=== PATIENT | female | born 1940 | race Caucasian/White ===

== ENCOUNTER 2019-07-29 13:02 | Outpatient (CLI) | payer MEDICARE ==
[2019-07-29 20:18] LABS: HEMOGLOBIN A1C 0.57 g/dL; HEMOGLOBIN A1C % 5.9 % (4.6-6.2)
== END 2019-07-29 13:03 | disposition home or self-care (01) ==
LOC: LAB.S 13:02
PROVIDERS: ATTEND Registered Nurse
DX: L83 Acanthosis nigricans (principal); M35.3 Polymyalgia rheumatica
CPT/HCPCS: 36415; 83036; 85651; 86140

== ENCOUNTER 2019-07-30 11:45 | Outpatient (CLI) | payer MEDICARE | END 2019-07-30 11:46 | disposition home or self-care (01) | LOC: LAB.S 11:45 | PROVIDERS: ATTEND Registered Nurse | DX: M35.3 Polymyalgia rheumatica (principal) | CPT/HCPCS: 86140 ==

== ENCOUNTER 2020-12-25 11:35 | Emergency (ER) | payer MEDICARE ==
--- NOTE | 2020-12-25 12:39 | ED Physician Documentation ---
PD HPI BACK PAIN - Stated complaint Stated Complaint: BACK PX - Chief complaint Chief Complaint: Back Pain - History obtained from History obtained from: Family - History of Present Illness Timing - onset: How many days ago (5) Timing - duration: Days (5) Timing - details: Gradual onset, Still present Location: Upper, Mid Quality: Pain, Spasm, Sharp Associated symptoms: No: Fever, Weakness, Numbness, Incontinent of urine, Unable to urinate, Hematuria, Incontinent of stool Improves with: Rest, Position Worsened by: Movement Similar symptoms before: Diagnosis (PMR) Recently seen: Clinic - Additional information Additional information: 80-year-old female with history of asked dementia has developed back pain in her mid back about 5 days ago and she has had a progression of her symptoms. She has gone in to see her primary care doctor and has been placed onto a lidocaine patch. Had some improvement with that but last night had a really bad night and they were directed to come to the emergency department for further evaluation. The patient has not otherwise been ill. The patient herself is not able to participate in history. She laughs a lot and is quite pleasant. Review of Systems Constitutional: denies: Fever Eyes: denies: Decreased vision Ears: denies: Ear pain Nose: denies: Congestion Throat: denies: Sore throat Cardiac: denies: Chest pain / pressure Respiratory: denies: Dyspnea, Cough GI: denies: Vomiting : reports: Frequency. denies: Dysuria Skin: denies: Rash Musculoskeletal: reports: Back pain. denies: Neck pain, Extremity pain PD PAST MEDICAL HISTORY - Present Medications Home Medications: Ambulatory Orders Medication Instructions Recorded Confirmed Meloxicam [Mobic] 7.5 mg PO BID PRN #20 tablet 12/25/20 - Allergies Allergies/Adverse Reactions: Allergies Allergy/AdvReac Type Severity Reaction Status Date / Time No Known Drug Allergies Allergy Verified 12/25/20 11:48 PD ED PE NORMAL - Vitals Vital signs reviewed: Yes - General General: No acute distress, Well developed/nourished, Other (alert and interactive but not able to get straight answer. ) - HEENT HEENT: Atraumatic, PERRL, EOMI - Neck Neck: Supple, no meningeal sign, No bony TTP - Cardiac Cardiac: RRR, No murmur - Respiratory Respiratory: No respiratory distress, Clear bilaterally - Abdomen Abdomen: Soft, Non tender - Back Back: No CVA TTP, No spinal TTP - Derm Derm: Normal color, Warm and dry, No rash - Extremities Extremities: No deformity, No edema - Neuro Neuro: control analyst 2-12 intact, No motor deficit, No sensory deficit, Normal speech Eye Opening: Spontaneous Motor: Obeys Commands Verbal: Confused GCS Score: 14 - Psych Psych: Normal mood, Normal affect Results - Vitals Vitals: Vital Signs - 24 hr 12/25/20 12/25/20 11:39 14:32 Temperature 36.2 C L Heart Rate 94 82 Respiratory 16 16 Rate Blood Pressure 152/83 H 171/88 H O2 Saturation 96 97 Oxygen O2 Source Room air - Labs Labs: Laboratory Tests 12/25/20 13:40 Urine Color DARK YELLOW Urine Clarity CLEAR Urine pH 5.0 Ur Specific [place] >=1.030 H Urine Protein NEGATIVE Urine Glucose (UA) NEGATIVE Urine Ketones NEGATIVE Urine Occult Blood NEGATIVE Urine Nitrite NEGATIVE Urine Bilirubin NEGATIVE Urine Urobilinogen 0.2 (NORMAL) Ur Leukocyte Esterase NEGATIVE Ur Microscopic Review NOT INDICATED Urine Culture Comments NOT INDICATED - Rads (name of study) thoracic Radiology: Prelim report reviewed (Impression: No acute thoracic spine compression fracture or spondylolisthesis. Very mild leftward curvature of the lower thoracic spine as above. Degenerative disc disease throughout the thoracic spine.), EMP read indepedently, See rad report Lumbar spine Radiology: Prelim report reviewed (Impression: No acute lumbar spine fracture or dislocation. Degenerative endplate changes throughout lumbar spine more prominent at L5-S1 and L4-5 levels. Minimal retrolisthesis at L2-3 and L3-4.), EMP read indepedently, See rad report PD MEDICAL DECISION MAKING - ED course Complexity details: reviewed results, re-evaluated patient, considered differential, d/w patient, d/w family ED course: 80-year-old female with some back pain in her mid back does not have evidence of compression fracture on examination. She does have some pain and winces periodically when she is ministered Toradol and dexamethasone. She has improvement. She is diagnosed with dehydration as well with a concentrated urine. No evidence of infection. Departure - Departure Disposition: 01 Home, Self Care Clinical Impression: Dehydration Thoracic myofascial strain Qualifiers: Encounter type: initial encounter Qualified Code(s): S29.019A - Strain of muscle and tendon of unspecified wall of thorax, initial encounter Condition: Stable Instructions: ED Dehydration, ED Sprain Thoracic Spine Follow-Up: Verónica Chew ARNP [Primary Care Provider] - Prescriptions: Meloxicam [Mobic] 7.5 mg PO BID PRN #20 tablet PRN Reason: Pain Discharge Date/Time: 12/25/20 14:48
--- NOTE | 2020-12-25 13:36 | XRAY Report ---
PROCEDURE: Thoracic Spine 3 View INDICATIONS: thoracolumbar pain with movement. TECHNIQUE: 2 views of the thoracic spine were acquired. COMPARISON: None. FINDINGS: Bones: No fractures or dislocations. Very mild leftward curvature of lower thoracic spine centered at T11 level is seen. Degenerative endplate changes are noted throughout thoracic spine. No suspiciou s bony lesions. 12 pairs of ribs are noted, and appear intact where visualized. Soft tissues: No paravertebral stripe thickening. IMPRESSION: No acute thoracic spine compression fracture or spondylolisthesis. Very mild leftward curvature of lo wer thoracic spine as above. Degenerative disc disease throughout thoracic spine. Reviewed by: Elmo Bay MD on 12/25/2020 1:35 PM PST Approved by: Elmo Bay MD on 12/25/2020 1:35 PM PST Station ID: [id number]
--- NOTE | 2020-12-25 13:37 | XRAY Report ---
PROCEDURE: Lumbar Spine 2 View INDICATIONS: thoraco/lumbar pain with movement. TECHNIQUE: 2 views of the lumbar spine were acquired. COMPARISON: None. FINDINGS: Bones: 5 [id number] vertebrae are present. There is minimal retrolisthesis of L2 on L3 at L3 o n L4. Degenerative endplate changes throughout lumbar spine is seen more prominent at L4-5 and L5-S1 levels with bilateral facet arthrosis.. No vertebral body compression fractures. No suspicious bony lesions. Soft tissues: Overlying bowel gas pattern is normal. No suspicious soft tissue calcifications. IMPRESSION: No acute lumbar spine fracture or dislocation. Degenerative endplate changes throughout lumbar spine more prominent at L4-5 and L5-S1 levels. Minimal retrolisthesis at L2-3 and L3-4 levels. Reviewed by: Elmo Bay MD on 12/25/2020 1:36 PM PST Approved by: Elmo Bay MD on 12/25/2020 1:36 PM PST Station ID: [id number]
[2020-12-25 13:55] LABS: BILIRUBIN,URINE NEGATIVE (NEGATIVE); GLUCOSE, URINE (UA) NEGATIVE (NEGATIVE); KETONES,URINE (UA) NEGATIVE (NEGATIVE); LEUKOCYTE ESTERASE, URINE NEGATIVE (NEGATIVE); NITRITE,URINE NEGATIVE (NEGATIVE); OCCULT BLOOD,URINE NEGATIVE (NEGATIVE); PROTEIN,URINE NEGATIVE (NEGATIVE); UROBILINOGEN,URINE 0.2 (NORMAL) E.U./dL (NORMAL)
[2020-12-25 13:59] LABS: CLARITY,URINE CLEAR (CLEAR)
[2020-12-25] MEDS ORDERED: KETOROLAC 60 MG/2 ML VIAL IM STA (14:14)
[2020-12-25] MEDS ORDERED: DEXAMETHASONE 10 MG/ML VIAL PO STA (14:15)
[2020-12-25] MEDS: CHERRY SYRUP 10 ML UDC PO ONE (14:26)
[2020-12-25 14:33] VITALS: BP 171/88
== END 2020-12-25 14:48 | disposition home or self-care (01) ==
LOC: ED 11:35
DX: S29.019A Strain of muscle and tendon of unspecified wall of thorax, initial encounter (principal); X58.XXXA Exposure to other specified factors, initial encounter; E86.0 Dehydration
CPT/HCPCS: 72072; 72100; 81003; 96372; 99284; A9270; 81001; 87086

== ENCOUNTER 2021-01-22 12:07 | Outpatient (CLI) | payer MEDICARE ==
--- NOTE | 2021-01-22 20:21 | CT Report ---
PROCEDURE: Abdomen/Pelvis WO INDICATIONS: KIDNEY STONE TECHNIQUE: Noncontrast 5 mm thick sections acquired from the diaphragms to the symphysis. 5 mm coronal and sagi ttal reformats were then performed. For radiation dose reduction, the following was used: automated exposure control, adjustment of mA and/or kV according to patient size. COMPARISON: None. FINDINGS: Some images are degraded by motion artifact. Inferior chest: No focal consolidation, pleural effusion, or pneumothorax. No cardiomegaly or perica rdial effusion. Gallbladder: The gallbladder is distended with a smooth wall. Biliary tree: No intra-or extrahepatic biliary ductal dilatation. Liver: The liver demonstrates normal appearance. Spleen: Normal size and morphology is seen. Pancreas: Normal morphology without masses or inflammatory changes. Adrenals: Normal size without masses. Kidneys: Normal size and morphology. No contour deforming solid masses or evidence of obstructive uro eddie. Vasculature: No evidence of aneurysm or other significant vascular pathology. Lymphatic system: No pathologic enlargement by size criteria. Bowel: Trace hiatal hernia. No intestinal obstruction. Sigmoid colon diverticulosis. Normal appendix. Peritoneum/Retroperitoneum: No free intraperitoneal gas or large collection. Urinary bladder: The urinary bladder is distended with a smooth thin wall. Pelvic organs: The uterus is surgically absent. Bones/soft tissues: No significant abnormality. IMPRESSION: 1.No significant abnormality. Reviewed by: Savage Crystal MD on 01/22/2021 8:19 PM [facility] Approved by: Savage Crystal MD on 01/22/2021 8:19 PM PST Station ID: [id number]
== END 2021-01-22 12:08 | disposition home or self-care (01) ==
LOC: DI 12:07
PROVIDERS: ATTEND Nurse Practitioner Family
DX: N20.0 Calculus of kidney (principal)

== ENCOUNTER 2023-02-07 10:30 | Emergency (ER) | payer MEDICARE ==
[2023-02-07] MEDS ORDERED: KETOROLAC 30 MG/ML VIAL IVP STA (11:37)
[2023-02-07] MEDS ORDERED: SODIUM CHLORIDE 0.9% 1,000 ML IV STA (11:37)
[2023-02-07] MEDS ORDERED: ONDANSETRON 4 MG/2 ML VIAL IVP STA (11:37)
--- NOTE | 2023-02-07 11:39 | ED Physician Documentation ---
PD HPI HEADACHE - Stated complaint Stated Complaint: KRUEGER - Chief complaint Chief Complaint: Neuro - History obtained from History obtained from: Family - Additional information Additional information: 82-year-old female who has a history of dementia and is a limited historian for this reason presents with her for headache. The states that the patient does have a history of migraines, had them quite severe when she was younger and then they improved after menopause but then recently she started to have headaches again. She was complaining of a headache behind her left eye since around midnight, it caused her to not be able to sleep well and she had a associated nausea and vomiting. She received 1 g of Tylenol around 4 5 this morning though does not think it helped all that much. She has not had a fever, no change in mentation or focal neurochanges, no cough or URI symptoms. She has been complaining of left leg pain for the last week and a half or so no states no known injury. She is not able to identify where it hurts her but it seems to have impaired her ability to walk well recently due to the pain. has not noted any swelling, no redness, and no known injuries. She does primarily sit in a chair or lay in bed most of the day though he does try to get her up and walking around periodically. No history of DVT or PE. Review of Systems Unable to obtain: Dementia PD PAST MEDICAL HISTORY - Past Medical History Past Medical History: Yes Neuro: Alzhiemer's, Dementia - Past Surgical History Past Surgical History: Yes /TEAROOM HOSTESS: Hysterectomy, Other - Present Medications Home Medications: Ambulatory Orders Medication Instructions Recorded Confirmed LORazepam [Ativan] 0.5 mg PO DAILY 02/07/23 - Allergies Allergies/Adverse Reactions: Allergies Allergy/AdvReac Type Severity Reaction Status Date / Time No Known Drug Allergies Allergy Verified 12/25/20 11:48 - Social History Does the pt smoke?: No Smoking Status: Never smoker PD ED PE NORMAL - Vitals Vital signs reviewed: Yes - General General: No acute distress, Well developed/nourished - HEENT HEENT: Atraumatic, Moist mucous membranes - Cardiac Cardiac: RRR, No murmur - Respiratory Respiratory: No respiratory distress, Clear bilaterally - Abdomen Abdomen: Normal bowel sounds, Soft, Non tender, Non distended - Derm Derm: Normal color, Warm and dry, No rash - Extremities Extremities: No deformity, No tenderness to palpate, Normal ROM s pain, No edema, No calf tenderness / cord, Other Results - Vitals Vitals: Vital Signs - 24 hr 02/07/23 02/07/23 02/07/23 10:43 12:39 13:36 Temperature 36.1 C L 36.6 C Heart Rate 90 84 86 Respiratory 16 17 17 Rate Blood Pressure 143/92 H 148/76 H 148/78 H O2 Saturation 98 96 96 Oxygen O2 Source Room air - Labs Labs: Laboratory Tests 02/07/23 02/07/23 11:46 11:46 WBC 5.4 RBC 4.54 Hgb 13.2 Hct 40.0 MCV 88.1 MCH 29.1 MCHC 33.0 RDW 13.4 Plt Count 190 MPV 9.9 Neut # (Auto) 3.8 Lymph # (Auto) 1.[address] [place] # (Auto) 0.3 Eos # (Auto) 0.1 Baso # (Auto) 0.0 Absolute Nucleated RBC 0.00 Nucleated RBC % 0.0 Sodium 138 Potassium 4.1 Chloride 105 Carbon Dioxide 29 Anion Gap 4.0 L BUN 17 Creatinine 0.6 Estimated GFR (MDRD) 95 Glucose 116 H Calcium 9.7 PD Medical Decision Making - ED course Complexity details: reviewed results, considered differential, d/w patient ED course: 82-year-old female with a past medical history of dementia presents with her for left sided headache similar to prior migraines as well as left leg pain. Patient is well-appearing here on physical exam, afebrile and nontoxic- appearing she is a limited historian given her dementia and it is difficult to tell if she still has the headache she is not able to articulate whether or not it is still present or if it is worse or better than earlier today. I therefore discussed with patient's that we could try routine headache treatment such as Toradol, some Zofran for her nausea and IV fluids. I did not give her metoclopramide as I was concerned this may increase risk of confusion. The patient received these medications and seems to be doing somewhat better, she thinks her headache has improved though again she is a difficult historian. She has no neurologic changes and given she has a history of headaches I do not see indication for imaging at this time. In regards to her leg pain, she does not appear to have the leg Pain at this time and I cannot reproduce any pain but we did obtain ultrasound to rule out DVT given she is quite immobile, there is no DVT on ultrasound. There is no indication for x-ray at this time but advised if she has ongoing pain to follow-up with her PCP. The patient was discharged home in stable condition and return precautions reviewed with her and her . Departure - Departure Disposition: Home, Self Care Clinical Impression: Migraine Qualifiers: Migraine type: unspecified Status migrainosus presence: without status migrainosus Intractability: not intractable Qualified Code(s): G43.909 - Migraine, unspecified, not intractable, without status migrainosus Condition: Good Instructions: ED Headache Migraine Comments: We gave Lesa a dose of zofran (a nausea medication) and toradol (and antiinflammatory) along with some IV fluids to help with her headache. This is often an effective treatment for migraines. If she develops recurrent headache at home you can give her 400 mg of ibuprofen up to 3 times a day and 1000 mg of Tylenol up to twice a day. It is okay to take both of these as needed.If the headache recurs and is not alleviated by these measures, please follow-up with primary doctor or return to the ER for reevaluation. As we discussed, the leg ultrasound is negative for a blood clot. Forms: PCP List
[2023-02-07 11:51] LABS: BASOPHILS % (AUTO) 0.6 %; EOSINOPHILS # (AUTO) 0.1 10^3/uL (0.0-0.7); EOSINOPHILS % (AUTO) 1.1 %; HGB - HEMOGLOBIN 13.2 g/dL (12.0-16.0); LYMPHOCYTES # (AUTO) 1.2 10^3/uL (1.5-3.5); MEAN CORPUSCULAR HEMOGLOBIN 29.1 pg (27.0-31.0); MEAN CORPUSCULAR VOLUME 88.1 fL (81.0-99.0); MEAN PLATELET VOLUME 9.9 fL (7.9-10.8); MONOCYTES # (AUTO) 0.3 10^3/uL (0.0-1.0); NEUTROPHILS # (AUTO) 3.8 10^3/uL (1.5-6.6); NEUTROPHILS % (AUTO) 70.1 %; PLT - PLATELET COUNT 190 10^3/uL (130-450); RED BLOOD COUNT 4.54 10^6/uL (4.20-5.40); RED CELL DISTRIBUTION WIDTH 13.4 % (12.0-15.0); WHITE BLOOD COUNT 5.4 x10^3/uL (4.8-10.8)
[2023-02-07 12:08] LABS: CALCIUM 9.7 mg/dL (8.5-10.3); CREATININE 0.6 mg/dL (0.6-1.3); POTASSIUM 4.1 mmol/L (3.5-4.5)
[2023-02-07 12:41] VITALS: O2SAT 96
--- NOTE | 2023-02-07 13:18 | Ultrasound Report ---
PROCEDURE: Duplex Ext Veins Left INDICATIONS: left leg pain, eval for dvt TECHNIQUE: Real-time imaging, as well as color and pulse Doppler interrogation, were performed of the lower extr emity deep veins from the inguinal ligament to the popliteal fossa. Attempted visualization of the ca lf veins was performed. COMPARISON: None. FINDINGS: The deep veins are normally compressible, and free of intraluminal thrombus. Color and pu lse Doppler demonstrate normal phasic intraluminal flow. There is normal augmentation response to di stal compression maneuver. IMPRESSION: No deep venous thrombosis of the visualized lower extremity. Reviewed by: Krzysztof Avalos MD on 02/07/2023 1:17 PM PST Approved by: Krzysztof Avalos MD on 02/07/2023 1:17 PM PST Station ID: [id number]
[2023-02-07 13:39] VITALS: BP 148/78
== END 2023-02-07 14:25 | disposition home or self-care (01) ==
LOC: ED 10:30
DX: G43.909 Migraine, unspecified, not intractable, without status migrainosus (principal); G30.9 Alzheimer's disease, unspecified; F02.80 Dementia in other diseases classified elsewhere, unspecified severity, without behavioral disturbance, psychotic disturbance, mood disturbance, and anxiety
CPT/HCPCS: 36415; 80048; 85025; 96374; 96375; 99283

== ENCOUNTER 2023-04-25 10:30 | Outpatient (CLI) | payer MEDICARE | END 2023-04-25 23:59 | disposition home or self-care (01) | LOC: PC 10:30 | PROVIDERS: ATTEND Nurse Practitioner Gerontology | DX: Z51.5 Encounter for palliative care (principal); G30.9 Alzheimer's disease, unspecified; F02.80 Dementia in other diseases classified elsewhere, unspecified severity, without behavioral disturbance, psychotic disturbance, mood disturbance, and anxiety; Z85.3 Personal history of malignant neoplasm of breast; Z66 Do not resuscitate; R26.81 Unsteadiness on feet; Z75.8 Other problems related to medical facilities and other health care; M79.605 Pain in left leg; M79.604 Pain in right leg; M19.90 Unspecified osteoarthritis, unspecified site | CPT/HCPCS: 99349 ==

== ENCOUNTER 2023-05-22 08:00 | Outpatient (CLI) | payer MEDICARE | END 2023-05-22 23:59 | disposition home or self-care (01) | LOC: PC 08:00 | PROVIDERS: ATTEND Nurse Practitioner Gerontology | DX: Z51.5 Encounter for palliative care (principal); G30.9 Alzheimer's disease, unspecified; F02.80 Dementia in other diseases classified elsewhere, unspecified severity, without behavioral disturbance, psychotic disturbance, mood disturbance, and anxiety; N39.0 Urinary tract infection, site not specified; R63.0 Anorexia; M54.50 Low back pain, unspecified; Z71.89 Other specified counseling; Z91.81 History of falling; B96.20 Unspecified Escherichia coli [E. coli] as the cause of diseases classified elsewhere; R63.4 Abnormal weight loss; R15.9 Full incontinence of feces; R32 Unspecified urinary incontinence; Z66 Do not resuscitate; R26.81 Unsteadiness on feet | CPT/HCPCS: 99310; G0317; 99418 ==

== ENCOUNTER 2023-06-05 08:00 | Outpatient (CLI) | payer MEDICARE | END 2023-06-05 23:59 | disposition home or self-care (01) | LOC: PC 08:00 | PROVIDERS: ATTEND Nurse Practitioner Gerontology | DX: Z51.5 Encounter for palliative care (principal); G30.9 Alzheimer's disease, unspecified; F02.80 Dementia in other diseases classified elsewhere, unspecified severity, without behavioral disturbance, psychotic disturbance, mood disturbance, and anxiety; Z85.3 Personal history of malignant neoplasm of breast; R26.81 Unsteadiness on feet; R63.0 Anorexia; Z66 Do not resuscitate; R32 Unspecified urinary incontinence; R15.9 Full incontinence of feces; Z91.81 History of falling; M54.50 Low back pain, unspecified; R26.89 Other abnormalities of gait and mobility; Z71.89 Other specified counseling | CPT/HCPCS: 99310 ==

== ENCOUNTER 2023-06-06 08:00 | Outpatient (CLI) | payer MEDICARE | END 2023-06-06 23:59 | disposition home or self-care (01) | LOC: PC 08:00 | PROVIDERS: ATTEND Nurse Practitioner Gerontology | DX: Z51.5 Encounter for palliative care (principal); G30.9 Alzheimer's disease, unspecified; F02.80 Dementia in other diseases classified elsewhere, unspecified severity, without behavioral disturbance, psychotic disturbance, mood disturbance, and anxiety; M85.80 Other specified disorders of bone density and structure, unspecified site; G89.29 Other chronic pain | CPT/HCPCS: 99426; 99427 ==

== ENCOUNTER 2023-07-06 08:00 | Outpatient (CLI) | payer MEDICARE | END 2023-07-06 23:59 | disposition home or self-care (01) | LOC: PC 08:00 | PROVIDERS: ATTEND Nurse Practitioner Gerontology | DX: Z51.5 Encounter for palliative care (principal); R63.0 Anorexia; R26.89 Other abnormalities of gait and mobility; G30.9 Alzheimer's disease, unspecified | CPT/HCPCS: 99310 ==

== ENCOUNTER 2023-08-16 13:30 | Outpatient (CLI) | payer MEDICARE | END 2023-08-16 23:59 | disposition home or self-care (01) | LOC: PC 13:30 | PROVIDERS: ATTEND Nurse Practitioner Gerontology | DX: Z51.5 Encounter for palliative care (principal); G30.9 Alzheimer's disease, unspecified; F02.818 Dementia in other diseases classified elsewhere, unspecified severity, with other behavioral disturbance; M85.80 Other specified disorders of bone density and structure, unspecified site; K59.03 Drug induced constipation; T40.2X5A Adverse effect of other opioids, initial encounter; G89.29 Other chronic pain; M06.89 Other specified rheumatoid arthritis, multiple sites; M81.0 Age-related osteoporosis without current pathological fracture; M19.90 Unspecified osteoarthritis, unspecified site; Z71.89 Other specified counseling; Z79.891 Long term (current) use of opiate analgesic; Z85.3 Personal history of malignant neoplasm of breast | CPT/HCPCS: 99350 ==

== ENCOUNTER 2023-09-06 08:00 | Outpatient (CLI) | payer MEDICARE | END 2023-09-06 23:59 | disposition home or self-care (01) | LOC: PC 08:00 | PROVIDERS: ATTEND Nurse Practitioner Gerontology | DX: Z51.5 Encounter for palliative care (principal); G30.9 Alzheimer's disease, unspecified; M85.80 Other specified disorders of bone density and structure, unspecified site | CPT/HCPCS: 99426 ==